=== PATIENT | male | born 1950 | race Caucasian/White ===

== ENCOUNTER 2023-02-19 18:44 | Emergency (ER) | payer MEDICARE, OTHER ==
[~2023-02-19] VITALS: Ht 177.8 cm; Wt 75.0 kg
[~2023-02-19 18:44] MED LIST: FLOMAX 0.40.4 MG/CAP PO; ROBAXIN 50500 MG/TAB PO; ULTRAM 50MG TAB50 MG PO; UROXATRAL10 M1 PO; ZOCOR 20MG20 MG PO
[2023-02-19 18:50] VITALS: TEMP 98.3
[2023-02-19 19:35] LABS: BASO # 0.1 K/mm3 (0.0-0.2); BASO % 0.5 % (0.0-2.0); EOS # 0.1 K/mm3 (0.0-0.7); EOS % 1.5 % (0.0-4.0); GRAN # 6.6 K/mm3 (1.4-6.5); GRAN % 70.7 % (42.2-75.2); HEMOGLOBIN 12.8 g/dl (13.5-18.0); LYMPH # 1.5 K/mm3 (1.2-3.4); LYMPH % 16.5 % (20.0-51.0); MEAN CELL VOLUME 92 fl (80.0-100.0); MEAN CORPUSCULAR HEMOGLOBIN 33 pg (27-31); MEAN CORPUSCULAR HGB CONC 35 g/dl (33.0-37.0); MEAN PLATELET VOLUME 10.1 fl (7.4-10.4); MONO % 10.5 % (1.7-9.3); PLATELET COUNT 185 K/mm3 (130-400); RED BLOOD COUNT 3.94 M/mm3 (4.20-5.60); REDCELL DISTRIBUTION WIDTH-CV 12.8 % (11.5-14.5)
[2023-02-19 19:41] LABS: HEMATOCRIT 36.3 % (42.0-52.0)
[2023-02-19 19:43] LABS: COLLECTION METHOD CLEAN CATCH
[2023-02-19 19:57] LABS: ALBUMIN 3.5 gm/dL (3.4-4.8); BILIRUBIN,TOTAL 0.8 mg/dL (0.2-1.2); CALCIUM 9.2 mg/dL (8.4-10.2); CREATININE, serum 0.91 mg/dL (0.72-1.25); POTASSIUM 3.5 mmol/L (3.5-4.5); TOTAL PROTEIN 6.6 gm/dL (6.2-8.1)
[2023-02-19 19:57] LABS: PH 5.5 (5.0-8.5); URINE APPEARANCE Turbid (CLEAR/HAZY); URINE COLOR Amber (YELLOW)
[2023-02-19 19:58] LABS: URINE BLOOD 3+ (NEGATIVE); URINE GLUCOSE Negative (NEGATIVE); URINE KETONE 3+ (NEGATIVE); URINE NITRATE Negative (NEGATIVE); URINE PROTEIN(semi-quant) 3+ (NEGATIVE); URINE RBC >50 /hpf (0-2)
[2023-02-19 19:59] LABS: SQUAMOUS EPITHELIAL 0-2 /hpf (0-10); URINE BACTERIA Moderate /hpf (NONE SEEN)
[2023-02-19 20:18] LABS: TSH w REFLEX 3.919 uIU/mL (0.350-4.940)
[2023-02-19] MEDS ORDERED: LEVAQUIN 2250 MG/TAB PO (20:25)
[2023-02-19 20:48] VITALS: BP 142/82; PULSE 67
== END 2023-02-19 20:48 | disposition home or self-care (01) ==
LOC: COL.ER 18:44
PROVIDERS: Emergency Medicine
DX: N39.0 Urinary tract infection, site not specified (principal); D64.9 Anemia, unspecified; Z11.52 Encounter for screening for COVID-19

== ENCOUNTER → 2023-03-28 | Outpatient (CLI) | payer MEDICARE, OTHER ==
[~2023-03-28] MED LIST changes: +LEVAQUIN 2250 MG/TAB PO
== END ==
LOC: COL.RAD 09:57
DX: R41.3 Other amnesia (principal)

== ENCOUNTER 2023-04-12 06:49 | Emergency (ER) | payer MEDICARE, OTHER | END 2023-04-12 06:55 | disposition home or self-care (01) | LOC: COL.ER 06:49 | DX: R46.89 Other symptoms and signs involving appearance and behavior (principal) ==